=== PATIENT | male | born 1965 | race Two or more races ===

== ENCOUNTER 2023-08-19 10:44 | Inpatient (IN) | payer MEDICAID, OTHER ==
[~2023-08-19] VITALS: Ht 182.9 cm; Wt 93.0 kg
[2023-08-19] MEDS ORDERED: ASPirin 325 MG TAB PO ONE (11:00)
[2023-08-19 11:15] LABS: Basophils # (auto) 0 10 ^3/uL (0-0.2); Basophils % (auto) 0.6 % (0.0-2.0); Eosinophils # (auto) 0.1 10 ^3/uL (0-0.8); Hematocrit 44.5 % (41.0-53.0); Hemoglobin 15.1 g/dL (13.5-17.5); Lymphocytes # (auto) 2.3 10 ^3/uL (0.4-5.4); Lymphocytes % (auto) 35.4 % (10.0-50.0); Mean Corpuscular Hemoglobin 30.3 pg (28.0-32.0); Mean Corpuscular Volume 89.1 fL (80.0-100.0); Monocytes # (auto) 0.6 10 ^3/uL (0-1.3); Monocytes % (auto) 9.6 % (0.0-12.0); Neutrophils # (auto) 3.4 10 ^3/uL (1.6-8.6); Neutrophils % (auto) 52.4 % (37.0-80.0); Nucleated Red Blood Cells % 0.1 %; Red Blood Cells 4.99 10^6/uL (4.5-5.90); Red Cell Distribution Width 13.3 % (11.8-14.3); White Blood Cell 6.4 10^3/uL (4.4-10.8)
[2023-08-19 11:30] LABS: Alanine Aminotransferase 24 U/L (7-40); Albumin 4.5 g/dL (3.2-4.8); Alkaline Phosphatase 69 U/L (46-116); Anion Gap 4 (5-15); Aspartate Aminotransferase 13 U/L (13-40); BUN/Creatinine Ratio 8.2 (10.0-20.0); Bilirubin, Total 0.7 mg/dL (0.2-1.0); Blood Urea Nitrogen 8 mg/dL (9-23); Calcium 9.5 mg/dL (8.5-10.1); Carbon Dioxide 29 mmol/L (20-30); Chloride 104 mmol/L (98-107); Glucose 114 mg/dL (74-106); Potassium 4.6 mmol/L (3.5-5.1); Sodium 137 mmol/L (136-145); Total Protein 7.6 g/dL (5.7-8.2)
[2023-08-19 11:35] LABS: INR 1.09 (0.9-1.15); Partial Thromboplastin Time 28.6 SEC (24.5-34.5); Prothrombin Time 11.4 sec (9.3-11.8)
[2023-08-19 11:40] LABS: Urine Bacteria NONE SEEN /hpf (None Seen); Urine Blood Negative /uL (Negative); Urine Clarity Clear (Clear); Urine Color Colorless (Yellow); Urine Protein, UAD Negative (Negative); Urine Specific Gravity 1.006 (1.001-1.035); Urine Urobilinogen Normal (Negative); Urine WBC <1 /hpf (0 - 3)
[2023-08-19] MEDS ORDERED: DOCUSATE SOD 100 MG CAP PO PRN (14:15)
[2023-08-19] MEDS ORDERED: NITROGLYCERIN 0.4 MG SL TAB SL PRN (14:15)
[2023-08-19] MEDS ORDERED: ONDANSETRON HCL 4 MG/2 ML VIAL IV PRN ×2 (14:15)
[2023-08-19] MEDS ORDERED: ACETAMINOPHEN 325 MG TAB PO PRN (14:15)
[2023-08-19] MEDS ORDERED: MORPHINE SULFATE 4 MG/ML SYR/VIAL IV PRN (14:15)
[2023-08-19] MEDS ORDERED: MORPHINE SULFATE INJ 2 MG/ml SYRG IV PRN (14:15)
[2023-08-19] MEDS ORDERED: MECLIZINE HCL 25 MG TAB PO ONE (14:45)
[2023-08-19] MEDS ORDERED: MECLIZINE HCL 25 MG TAB PO PRN (14:45)
[2023-08-19 15:00] LABS: Triglycerides 97 mg/dL (< 150)
[2023-08-19 15:01] LABS: LDL Cholesterol 95 mg/dL (< 100)
[2023-08-19 15:02] LABS: Cholesterol 170 mg/dL (< 200); HDL Cholesterol 55 mg/dL (40-59)
[2023-08-19 15:26] VITALS: O2SAT 98
[2023-08-19 19:30] VITALS: PULSE 52; RESP 18; TEMP 98.1; O2SAT 96
[2023-08-19 22:00] VITALS: BP 127/83; PULSE 48; RESP 20; O2SAT 98
[2023-08-19] MEDS ORDERED: HEPARIN SODIUM (PORCINE) 5000 UNITS/ML 1ML VIAL SC SCH (22:00)
[2023-08-19] MEDS ORDERED: ATORVASTATIN 20 MG TAB PO SCH (22:00)
[2023-08-20] MEDS ORDERED: DOCUSATE SOD 100 MG CAP PO SCH (10:00)
[2023-08-20] MEDS ORDERED: LISINOPRIL 5 MG TAB PO SCH (10:00)
[2023-08-20] MEDS ORDERED: ASPirin 81 mg TAB PO SCH (10:00)
[2023-08-20] MEDS ORDERED: MIDAZOLAM HCL 2MG/2ML 2ml VIAL (1mg/ml) ONE (10:05)
[2023-08-20] MEDS ORDERED: fentaNYL CITRATE 100 MCG/2 ML VL ONE (10:05)
[2023-08-20] MEDS ORDERED: ANGIOMAX 250 MG VIAL IV ONE (10:05)
[2023-08-20] MEDS ORDERED: SODIUM CHL 0.9% 0 ML ONE (10:05)
[2023-08-20] MEDS ORDERED: IOHEXOL 350 MG/ML 100ML IJ ONE (10:06)
[2023-08-20] MEDS ORDERED: LIDOCAINE 2%HCL (LOCAL ANESTH.) INJ 20ML MDV ONE (10:06)
[2023-08-20 11:05] LABS: Basophils # (auto) 0 10 ^3/uL (0-0.2); Basophils % (auto) 0.5 % (0.0-2.0); Eosinophils # (auto) 0.2 10 ^3/uL (0-0.8); Eosinophils % (auto) 4.1 % (0.0-7.0); Hematocrit 45.1 % (41.0-53.0); Hemoglobin 15.3 g/dL (13.5-17.5); Lymphocytes % (auto) 33.4 % (10.0-50.0); Mean Corpuscular Hemoglobin 30.4 pg (28.0-32.0); Mean Corpuscular Hgb Conc. 33.8 g/dL (32.0-36.0); Mean Corpuscular Volume 89.8 fL (80.0-100.0); Monocytes # (auto) 0.6 10 ^3/uL (0-1.3); Monocytes % (auto) 10.2 % (0.0-12.0); Neutrophils % (auto) 51.8 % (37.0-80.0); Nucleated Red Blood Cells % 0.1 %; Red Blood Cells 5.02 10^6/uL (4.5-5.90); Red Cell Distribution Width 13.3 % (11.8-14.3); White Blood Cell 5.9 10^3/uL (4.4-10.8)
[2023-08-20 11:20] LABS: Alanine Aminotransferase 20 U/L (7-40); Albumin 4.3 g/dL (3.2-4.8); Alkaline Phosphatase 66 U/L (46-116); Anion Gap 4 (5-15); Aspartate Aminotransferase 11 U/L (13-40); BUN/Creatinine Ratio 5.5 (10.0-20.0); Bilirubin, Total 0.9 mg/dL (0.2-1.0); Blood Urea Nitrogen 6 mg/dL (9-23); Calcium 9.4 mg/dL (8.5-10.1); Carbon Dioxide 28 mmol/L (20-30); Chloride 105 mmol/L (98-107); Glucose 99 mg/dL (74-106); Potassium 4.6 mmol/L (3.5-5.1); Sodium 137 mmol/L (136-145); Total Protein 7.2 g/dL (5.7-8.2)
== END 2023-08-20 16:30 | disposition home or self-care (01) | DRG 192 ==
LOC: ER 10:44 → TELE 14:24
PROVIDERS: ADMIT Nurse Practitioner Family; ATTEND Nurse Practitioner Family
PROC: 4A023N7 Measurement of Cardiac Sampling and Pressure, Left Heart, Percutaneous Approach (ICD-10-PCS; principal; 2023-08-20)
PROC: B2111ZZ Fluoroscopy of Multiple Coronary Arteries using Low Osmolar Contrast (ICD-10-PCS; 2023-08-20)
PROC: B2151ZZ Fluoroscopy of Left Heart using Low Osmolar Contrast (ICD-10-PCS; 2023-08-20)
DX: R00.1 Bradycardia, unspecified (principal); H93.19 Tinnitus, unspecified ear; R00.2 Palpitations; I10 Essential (primary) hypertension
CPT/HCPCS: 36415; 70450; 71045; 80053; 80061; 81001; 83690; 83735; 84484; 85025; 85379; 85610; 85730; 86850; 86900; 86901; 93005; 93458; 99152; 99291; G0378; J2250

== ENCOUNTER → 2023-10-07 | Outpatient (CLI) | payer MEDICAID | END | disposition home or self-care (01) | LOC: Rad HDHVI 07:59 | PROVIDERS: ATTEND Internal Medicine Cardiovascular Disease | DX: I11.9 Hypertensive heart disease without heart failure (principal) | CPT/HCPCS: 93306 ==

== ENCOUNTER → 2023-10-09 | Outpatient (CLI) | payer MEDICAID ==
[~2023-10-09] VITALS: Ht 180.3 cm; Wt 93.0 kg
== END | disposition home or self-care (01) ==
LOC: Rad HDHVI 08:04
PROVIDERS: ATTEND Internal Medicine Cardiovascular Disease
DX: R00.2 Palpitations (principal); E78.00 Pure hypercholesterolemia, unspecified; F17.210 Nicotine dependence, cigarettes, uncomplicated; Z82.49 Family history of ischemic heart disease and other diseases of the circulatory system
CPT/HCPCS: 78452; 93017; 96374; A9500

== ENCOUNTER → 2023-12-14 | Outpatient (CLI) | payer MEDICAID ==
[~2023-12-14] MED LIST: APIX5TAB PO; ASPI-543 PO; ATOR10TA PO; DIPH25CA66 PO; METO25TA93 PO; MULT-1018 PO; ZOLP10TA6 PO
[2023-12-14 14:00] VITALS: BP 120/63; PULSE 58; RESP 18; O2SAT 96
[2023-12-14 14:20] VITALS: BP 113/60; PULSE 52; RESP 18; O2SAT 96
== END | disposition home or self-care (01) ==
LOC: CHF HDHVI 13:59
PROVIDERS: ATTEND Internal Medicine Cardiovascular Disease
DX: Z01.810 Encounter for preprocedural cardiovascular examination (principal); R94.31 Abnormal electrocardiogram [ECG] [EKG]; I10 Essential (primary) hypertension; R00.2 Palpitations; R06.02 Shortness of breath; R07.9 Chest pain, unspecified
CPT/HCPCS: 93005; G0463

== ENCOUNTER 2023-12-17 10:00 | Day surgery (SDC) | payer MEDICAID ==
[2023-12-14 15:12] LABS: Hemoglobin 14.5 g/dL (13.5-17.5); Mean Corpuscular Hemoglobin 29.5 pg (28.0-32.0); Mean Corpuscular Hgb Conc. 32.9 g/dL (32.0-36.0); Mean Corpuscular Volume 89.6 fL (80.0-100.0); Red Blood Cells 4.91 10^6/uL (4.5-5.90); Red Cell Distribution Width 13.4 % (11.8-14.3); White Blood Cell 5.9 10^3/uL (4.4-10.8)
[2023-12-14 15:19] LABS: INR 1.05 (0.9-1.15); Partial Thromboplastin Time 27.3 SEC (24.5-34.5)
[2023-12-14 15:23] LABS: Chloride 104 mmol/L (98-107); Sodium 139 mmol/L (136-145)
[2023-12-14 15:24] LABS: Anion Gap 4 (5-15); Carbon Dioxide 31 mmol/L (20-30)
[2023-12-14 15:29] LABS: BUN/Creatinine Ratio 17.5 (10.0-20.0); Blood Urea Nitrogen 17 mg/dL (9-23); Glucose 98 mg/dL (74-106)
[2023-12-14 15:32] LABS: Basophils % (manual) 0 (0.0-2.0); Blast Cells 0; Metamyelocytes % 0; Promyelocytes % 0; Reactive Lymphocytes 0
[2023-12-14 16:31] LABS: Band Neutrophils % (manual) 8; Eosinophils % (manual) 7 (0-7); Lymphocytes % (manual) 14 (10.0-50.0); Monocytes % (manual) 10 (0-12); Myelocytes % 7; Platelet Estimate Adequate
[~2023-12-17] VITALS: Ht 180.3 cm; Wt 91.6 kg
[~2023-12-17 10:00] MED LIST changes: -ASPI-543 PO; -DIPH25CA66 PO; -METO25TA93 PO; -ZOLP10TA6 PO
[2023-12-17] MEDS ORDERED: VANCOMYCIN 1GM/200ML 200 ML IV ONE ×2 (11:00→13:34)
[2023-12-17] MEDS ORDERED: VANCOMYCIN HCL 1000 MG VL ONE (13:33)
[2023-12-17] MEDS ORDERED: fentaNYL CITRATE 100 MCG/2 ML VL ONE (13:34)
[2023-12-17] MEDS ORDERED: MIDAZOLAM HCL 2MG/2ML 2ml VIAL (1mg/ml) ONE (13:34)
[2023-12-17] MEDS ORDERED: LIDOCAINE 2%HCL (LOCAL ANESTH.) INJ 20ML MDV ONE (13:51)
== END 2023-12-17 17:20 | disposition home or self-care (01) ==
LOC: CATH 10:00
PROVIDERS: ATTEND Internal Medicine Cardiovascular Disease
DX: I49.5 Sick sinus syndrome (principal); R00.1 Bradycardia, unspecified; I44.30 Unspecified atrioventricular block; I48.0 Paroxysmal atrial fibrillation; I11.0 Hypertensive heart disease with heart failure; I50.30 Unspecified diastolic (congestive) heart failure; Z79.01 Long term (current) use of anticoagulants; Z79.899 Other long term (current) drug therapy
CPT/HCPCS: 33208; 36415; 71045; 80048; 85007; 85027; 85610; 85730; 93005; C1785; C1898; J2250; J3010; J3370; J7030; 99152

== ENCOUNTER 2023-12-19 13:34 | Inpatient (IN) | payer MEDICAID ==
[~2023-12-19] VITALS: Ht 180.3 cm; Wt 97.6 kg
[2023-12-19 14:13] LABS: Basophils # (auto) 0 10 ^3/uL (0-0.2); Basophils % (auto) 0.5 % (0.0-2.0); Eosinophils # (auto) 0.2 10 ^3/uL (0-0.8); Eosinophils % (auto) 2.7 % (0.0-7.0); Hematocrit 44.8 % (41.0-53.0); Hemoglobin 14.9 g/dL (13.5-17.5); Lymphocytes # (auto) 2.2 10 ^3/uL (0.4-5.4); Lymphocytes % (auto) 30.6 % (10.0-50.0); Mean Corpuscular Hemoglobin 29.9 pg (28.0-32.0); Mean Corpuscular Hgb Conc. 33.3 g/dL (32.0-36.0); Mean Corpuscular Volume 89.6 fL (80.0-100.0); Monocytes # (auto) 0.7 10 ^3/uL (0-1.3); Monocytes % (auto) 10.3 % (0.0-12.0); Neutrophils % (auto) 55.9 % (37.0-80.0); Nucleated Red Blood Cells % 0.1 %; Red Cell Distribution Width 13.2 % (11.8-14.3); White Blood Cell 7.1 10^3/uL (4.4-10.8)
[2023-12-19 14:25] LABS: INR 1.04 (0.9-1.15); Partial Thromboplastin Time 27.2 SEC (24.5-34.5); Prothrombin Time 10.9 sec (9.3-11.8)
[2023-12-19 14:31] LABS: Alanine Aminotransferase 24 U/L (7-40); Albumin 4.3 g/dL (3.2-4.8); Alkaline Phosphatase 68 U/L (46-116); Anion Gap 6 (5-15); Aspartate Aminotransferase 19 U/L (13-40); BUN/Creatinine Ratio 19.6 (10.0-20.0); Bilirubin, Total 0.5 mg/dL (0.2-1.0); Blood Urea Nitrogen 20 mg/dL (9-23); Calcium 9.3 mg/dL (8.7-10.4); Carbon Dioxide 29 mmol/L (20-30); Chloride 105 mmol/L (98-107); Glucose 99 mg/dL (74-106); Magnesium 1.8 mg/dL (1.6-2.6); Potassium 4.7 mmol/L (3.5-5.1); Sodium 140 mmol/L (136-145); Total Protein 6.9 g/dL (5.7-8.2)
[2023-12-19] MEDS ORDERED: DIPH25CA66 PO (14:51)
[2023-12-19] MEDS: ENOXAPARIN SOD 100 MG/1 ML SYRINGE SC ONE (20:00)
[2023-12-19] MEDS ORDERED: ONDANSETRON HCL 4 MG/2 ML VIAL IV PRN (21:00)
[2023-12-19] MEDS ORDERED: HYDROcodone-ACET 5/325MG TAB PO PRN (21:00)
[2023-12-19] MEDS ORDERED: NITROGLYCERIN 0.4 MG SL TAB SL PRN (21:15)
[2023-12-19] MEDS ORDERED: MORPHINE SULFATE INJ 2 MG/ml SYRG IV PRN (21:15)
[2023-12-19 21:54] VITALS: PULSE 63; RESP 20; O2SAT 96
[2023-12-19] MEDS: ATORVASTATIN 20 MG TAB PO SCH (22:09)
[2023-12-19] MEDS: SODIUM CHLOR 0.9% PF (SALINE LOCK) 10ML VIAL/SYR IV SCH (22:10)
[2023-12-20] VITALS (8 sets, daily range): BP systolic 121–127; BP diastolic 68–83; PULSE 60–70; RESP 12–18; TEMP 97.6–98.2; O2SAT 95–98
[2023-12-20] MEDS: ZOLPIDEM TARTRATE 5 MG TAB PO SCH (00:05)
[2023-12-20 06:49] LABS: Basophils # (auto) 0 10 ^3/uL (0-0.2); Basophils % (auto) 0.6 % (0.0-2.0); Eosinophils # (auto) 0.2 10 ^3/uL (0-0.8); Eosinophils % (auto) 2.9 % (0.0-7.0); Hematocrit 42.3 % (41.0-53.0); Hemoglobin 14.2 g/dL (13.5-17.5); Lymphocytes # (auto) 2.4 10 ^3/uL (0.4-5.4); Lymphocytes % (auto) 42.6 % (10.0-50.0); Mean Corpuscular Hemoglobin 29.6 pg (28.0-32.0); Mean Corpuscular Hgb Conc. 33.5 g/dL (32.0-36.0); Mean Corpuscular Volume 88.2 fL (80.0-100.0); Monocytes # (auto) 0.6 10 ^3/uL (0-1.3); Monocytes % (auto) 10.1 % (0.0-12.0); Neutrophils # (auto) 2.5 10 ^3/uL (1.6-8.6); Neutrophils % (auto) 43.8 % (37.0-80.0); Red Cell Distribution Width 13.4 % (11.8-14.3); White Blood Cell 5.7 10^3/uL (4.4-10.8)
[2023-12-20 07:01] LABS: Alanine Aminotransferase 20 U/L (7-40); Albumin 3.9 g/dL (3.2-4.8); Alkaline Phosphatase 59 U/L (46-116); Anion Gap 7 (5-15); Aspartate Aminotransferase 19 U/L (13-40); BUN/Creatinine Ratio 19.8 (10.0-20.0); Bilirubin, Total 0.7 mg/dL (0.2-1.0); Blood Urea Nitrogen 17 mg/dL (9-23); Calcium 8.9 mg/dL (8.7-10.4); Carbon Dioxide 25 mmol/L (20-30); Chloride 107 mmol/L (98-107); Glucose 84 mg/dL (74-106); Potassium 4.1 mmol/L (3.5-5.1); Sodium 139 mmol/L (136-145); Total Protein 6.3 g/dL (5.7-8.2)
[2023-12-20] MEDS: APIXABAN 5 MG TAB PO SCH (10:10)
[2023-12-20] MEDS: ALPRAZolam 0.25 MG TAB PO PRN (10:33)
[2023-12-20] MEDS: METOPROLOL SUCCINATE XL 50 MG TAB PO ONE (11:07)
[2023-12-20] MEDS: MAGNESIUM SULFATE 1GM/100ML 100 ML IV ONE (13:31)
[2023-12-20 15:23] LABS: Magnesium 1.8 mg/dL (1.6-2.6)
[2023-12-20 15:38] LABS: CRP High Sensitivity 0.3 mg/dL (<1.0)
[2023-12-20 15:46] LABS: Erythrocyte Sedimentation Rate 8 mm/hr (0-20)
[2023-12-20] MEDS ORDERED: LORazepam 2MG/ML-1ML VIAL IV PRN (20:00)
[2023-12-21] VITALS (7 sets, daily range): BP systolic 103–121; BP diastolic 70–78; PULSE 56–70; RESP 14–19; TEMP 97.6–98.3; O2SAT 96–100
[2023-12-21 05:56] LABS: Basophils # (auto) 0 10 ^3/uL (0-0.2); Basophils % (auto) 0.7 % (0.0-2.0); Eosinophils # (auto) 0.3 10 ^3/uL (0-0.8); Eosinophils % (auto) 4.5 % (0.0-7.0); Hematocrit 42.9 % (41.0-53.0); Hemoglobin 14.4 g/dL (13.5-17.5); Lymphocytes # (auto) 2.4 10 ^3/uL (0.4-5.4); Lymphocytes % (auto) 43.1 % (10.0-50.0); Mean Corpuscular Hemoglobin 29.6 pg (28.0-32.0); Mean Corpuscular Hgb Conc. 33.5 g/dL (32.0-36.0); Mean Corpuscular Volume 88.4 fL (80.0-100.0); Monocytes # (auto) 0.6 10 ^3/uL (0-1.3); Monocytes % (auto) 10.1 % (0.0-12.0); Neutrophils # (auto) 2.3 10 ^3/uL (1.6-8.6); Neutrophils % (auto) 41.6 % (37.0-80.0); Nucleated Red Blood Cells % 0.2 %; Red Blood Cells 4.86 10^6/uL (4.5-5.90); Red Cell Distribution Width 12.9 % (11.8-14.3); White Blood Cell 5.6 10^3/uL (4.4-10.8)
[2023-12-21 06:15] LABS: Alanine Aminotransferase 18 U/L (7-40); Alkaline Phosphatase 56 U/L (46-116); Anion Gap 7 (5-15); BUN/Creatinine Ratio 14.9 (10.0-20.0); Blood Urea Nitrogen 13 mg/dL (9-23); Calcium 9.2 mg/dL (8.7-10.4); Carbon Dioxide 27 mmol/L (20-30); Chloride 106 mmol/L (98-107); Glucose 93 mg/dL (74-106); Magnesium 1.9 mg/dL (1.6-2.6); Potassium 3.9 mmol/L (3.5-5.1); Sodium 140 mmol/L (136-145)
[2023-12-21 06:16] LABS: Aspartate Aminotransferase 15 U/L (13-40); Bilirubin, Total 0.7 mg/dL (0.2-1.0)
[2023-12-21 06:17] LABS: Total Protein 6.7 g/dL (5.7-8.2)
[2023-12-21] MEDS: DOCUSATE SOD 100 MG CAP PO PRN (08:51)
[2023-12-21] MEDS: METOPROLOL SUCCINATE XL 50 MG TAB PO SCH (08:51)
[2023-12-21] MEDS: MAGNESIUM OXIDE 400 MG TAB PO SCH (08:51)
[2023-12-21] MEDS ORDERED: ZOLP10TA6 PO (14:20)
[2023-12-21] MEDS ORDERED: METO25TA93 PO (14:20)
[2023-12-21] MEDS ORDERED: ASPI-543 PO (14:20)
[2023-12-21] MEDS: ceFAZolin 1GM/50ML 50 ML IV SCH (16:00)
[2023-12-22] VITALS (12 sets, daily range): BP systolic 114–120; BP diastolic 70–78; PULSE 50–61; RESP 10–18; TEMP 97–98.3; O2SAT 95–97
[2023-12-22 06:24] LABS: Basophils # (auto) 0 10 ^3/uL (0-0.2); Basophils % (auto) 0.5 % (0.0-2.0); Eosinophils # (auto) 0.3 10 ^3/uL (0-0.8); Eosinophils % (auto) 4.8 % (0.0-7.0); Hematocrit 41.7 % (41.0-53.0); Hemoglobin 14.1 g/dL (13.5-17.5); Lymphocytes # (auto) 1.9 10 ^3/uL (0.4-5.4); Lymphocytes % (auto) 31.3 % (10.0-50.0); Mean Corpuscular Hgb Conc. 33.9 g/dL (32.0-36.0); Mean Corpuscular Volume 88.4 fL (80.0-100.0); Monocytes # (auto) 0.6 10 ^3/uL (0-1.3); Monocytes % (auto) 10.4 % (0.0-12.0); Neutrophils # (auto) 3.3 10 ^3/uL (1.6-8.6); Red Blood Cells 4.72 10^6/uL (4.5-5.90); Red Cell Distribution Width 13.2 % (11.8-14.3); White Blood Cell 6.1 10^3/uL (4.4-10.8)
[2023-12-22 06:26] LABS: Chloride 105 mmol/L (98-107); Sodium 138 mmol/L (136-145)
[2023-12-22 06:27] LABS: Anion Gap 6 (5-15); Calcium 9.1 mg/dL (8.7-10.4); Carbon Dioxide 27 mmol/L (20-30)
[2023-12-22 06:32] LABS: BUN/Creatinine Ratio 17.2 (10.0-20.0); Blood Urea Nitrogen 15 mg/dL (9-23); Glucose 101 mg/dL (74-106)
[2023-12-22 06:33] LABS: Magnesium 1.8 mg/dL (1.6-2.6)
[2023-12-22] MEDS ORDERED: ceFAZolin 1GM/50ML 50 ML IV SCH (14:30)
[2023-12-22] MEDS ORDERED: HYDROcodone-ACET 5/325MG TAB PO PRN (14:30)
[2023-12-22] MEDS: fentaNYL CITRATE 100 MCG/2 ML VL ONE (16:40)
[2023-12-22] MEDS: VANCOMYCIN 1GM/200ML 200 ML IV ONE (16:41)
[2023-12-22] MEDS: MIDAZOLAM HCL 2MG/2ML 2ml VIAL (1mg/ml) ONE (16:41)
[2023-12-22] MEDS: LIDOCAINE 2%HCL (LOCAL ANESTH.) INJ 20ML MDV ONE (16:41)
[2023-12-22] MEDS: VANCOMYCIN HCL 1000 MG VL ONE (16:41)
[2023-12-22] MEDS: HYDROmorphone HCL 2 MG/ML VL/or syr ONE (16:41)
[2023-12-22] MEDS: ACETAMINOPHEN 325 MG TAB PO PRN (21:00)
[2023-12-22] MEDS: ceFAZolin 1GM/50ML 50 ML IV SCH (22:00)
[2023-12-23] VITALS (7 sets, daily range): BP systolic 106–118; BP diastolic 64–76; PULSE 51–63; RESP 16–21; TEMP 97.5–98.3; O2SAT 97
[2023-12-23 06:20] LABS: Basophils # (auto) 0 10 ^3/uL (0-0.2); Basophils % (auto) 0.5 % (0.0-2.0); Eosinophils # (auto) 0.3 10 ^3/uL (0-0.8); Hematocrit 42.5 % (41.0-53.0); Lymphocytes # (auto) 2.4 10 ^3/uL (0.4-5.4); Lymphocytes % (auto) 34.2 % (10.0-50.0); Mean Corpuscular Hemoglobin 29.6 pg (28.0-32.0); Mean Corpuscular Volume 89.5 fL (80.0-100.0); Monocytes # (auto) 0.8 10 ^3/uL (0-1.3); Monocytes % (auto) 10.6 % (0.0-12.0); Neutrophils # (auto) 3.6 10 ^3/uL (1.6-8.6); Neutrophils % (auto) 50.7 % (37.0-80.0); Red Blood Cells 4.75 10^6/uL (4.5-5.90); Red Cell Distribution Width 13.3 % (11.8-14.3); White Blood Cell 7.1 10^3/uL (4.4-10.8)
[2023-12-23 06:33] LABS: Chloride 106 mmol/L (98-107); Sodium 137 mmol/L (136-145)
[2023-12-23 06:34] LABS: Anion Gap 5 (5-15); Calcium 8.9 mg/dL (8.7-10.4); Carbon Dioxide 26 mmol/L (20-30)
[2023-12-23 06:39] LABS: Glucose 89 mg/dL (74-106)
[2023-12-23 06:40] LABS: BUN/Creatinine Ratio 13.6 (10.0-20.0); Blood Urea Nitrogen 11 mg/dL (9-23)
[2023-12-24 05:00] VITALS: BP 104/64; PULSE 54; RESP 18; TEMP 97.5; O2SAT 96
[2023-12-24 06:35] LABS: Basophils # (auto) 0 10 ^3/uL (0-0.2); Basophils % (auto) 0.6 % (0.0-2.0); Eosinophils # (auto) 0.2 10 ^3/uL (0-0.8); Eosinophils % (auto) 3.8 % (0.0-7.0); Hematocrit 42.4 % (41.0-53.0); Hemoglobin 14.2 g/dL (13.5-17.5); Lymphocytes # (auto) 1.8 10 ^3/uL (0.4-5.4); Lymphocytes % (auto) 30.9 % (10.0-50.0); Mean Corpuscular Hemoglobin 29.8 pg (28.0-32.0); Mean Corpuscular Hgb Conc. 33.6 g/dL (32.0-36.0); Mean Corpuscular Volume 88.8 fL (80.0-100.0); Monocytes # (auto) 0.7 10 ^3/uL (0-1.3); Monocytes % (auto) 11.6 % (0.0-12.0); Neutrophils # (auto) 3.1 10 ^3/uL (1.6-8.6); Neutrophils % (auto) 53.1 % (37.0-80.0); Nucleated Red Blood Cells % 0.2 %; Red Blood Cells 4.77 10^6/uL (4.5-5.90); Red Cell Distribution Width 12.9 % (11.8-14.3); White Blood Cell 5.9 10^3/uL (4.4-10.8)
[2023-12-24 06:45] LABS: Chloride 105 mmol/L (98-107); Potassium 4.1 mmol/L (3.5-5.1); Sodium 139 mmol/L (136-145)
[2023-12-24 06:46] LABS: Anion Gap 6 (5-15); Carbon Dioxide 28 mmol/L (20-30)
[2023-12-24 06:51] LABS: BUN/Creatinine Ratio 19.5 (10.0-20.0); Blood Urea Nitrogen 16 mg/dL (9-23); Glucose 101 mg/dL (74-106); Magnesium 1.9 mg/dL (1.6-2.6)
[2023-12-24 08:00] VITALS: PULSE 52; PULSE 78; RESP 20; O2SAT 97
[2023-12-24 09:00] VITALS: BP 109/70; PULSE 78; RESP 20; TEMP 98.2; O2SAT 97
[2023-12-24 13:00] VITALS: BP 125/87; PULSE 61; RESP 20; TEMP 98.1; O2SAT 97
[2023-12-24 14:49] VITALS: BP 125/87; PULSE 61; RESP 20; TEMP 98.1; O2SAT 97
[2023-12-24 16:31] VITALS: BP 122/74; PULSE 66; RESP 20; TEMP 98; O2SAT 96
[2023-12-24] MEDS ORDERED: APIXABAN 5 MG TAB PO SCH (22:00)
== END 2023-12-24 15:40 | disposition home or self-care (01) | DRG 177 ==
LOC: ER 13:34 → TELE 21:12 → TELE-WESTW 22:24
PROVIDERS: ADMIT Internal Medicine Geriatric Medicine; ATTEND Internal Medicine Geriatric Medicine
PROC: 02WA3MZ Revision of Cardiac Lead in Heart, Percutaneous Approach (ICD-10-PCS; principal; 2023-12-22)
PROC: 02WA3MZ Revision of Cardiac Lead in Heart, Percutaneous Approach (ICD-10-PCS; 2023-12-22)
DX: T82.128A Displacement of other cardiac electronic device, initial encounter (principal); I21.A1 Myocardial infarction type 2; I47.20 Ventricular tachycardia, unspecified; I49.5 Sick sinus syndrome; I48.0 Paroxysmal atrial fibrillation; R55 Syncope and collapse; E78.5 Hyperlipidemia, unspecified; I49.3 Ventricular premature depolarization; G47.00 Insomnia, unspecified; F41.9 Anxiety disorder, unspecified; R00.2 Palpitations; Z95.0 Presence of cardiac pacemaker
CPT/HCPCS: 36415; 71045; 71046; 74176; 80048; 80053; 83735; 83880; 84484; 85025; 85610; 85652; 85730; 86141; 93005; 99152; G0378; J2250

== ENCOUNTER 2024-02-15 15:20 | Inpatient (IN) | payer MEDICAID ==
[~2024-02-15] VITALS: Ht 180.3 cm; Wt 92.1 kg
[~2024-02-15 15:20] MED LIST changes: +ASPI-543 PO; +METO25TA93 PO; +ZOLP10TA6 PO
[2024-02-15 15:45] LABS: Basophils # (auto) 0 10 ^3/uL (0-0.2); Basophils % (auto) 0.7 % (0.0-2.0); Eosinophils # (auto) 0.2 10 ^3/uL (0-0.8); Hematocrit 41.9 % (41.0-53.0); Hemoglobin 13.9 g/dL (13.5-17.5); Lymphocytes # (auto) 1.7 10 ^3/uL (0.4-5.4); Lymphocytes % (auto) 30.2 % (10.0-50.0); Mean Corpuscular Hemoglobin 29.4 pg (28.0-32.0); Mean Corpuscular Hgb Conc. 33.1 g/dL (32.0-36.0); Mean Corpuscular Volume 88.7 fL (80.0-100.0); Monocytes # (auto) 0.7 10 ^3/uL (0-1.3); Monocytes % (auto) 11.7 % (0.0-12.0); Neutrophils # (auto) 3.1 10 ^3/uL (1.6-8.6); Neutrophils % (auto) 54.4 % (37.0-80.0); Red Blood Cells 4.73 10^6/uL (4.5-5.90); Red Cell Distribution Width 13.4 % (11.8-14.3); White Blood Cell 5.7 10^3/uL (4.4-10.8)
[2024-02-15 15:55] LABS: Alanine Aminotransferase 26 U/L (7-40); Alkaline Phosphatase 64 U/L (46-116); Anion Gap 4 (5-15); Aspartate Aminotransferase 18 U/L (13-40); BUN/Creatinine Ratio 16.3 (10.0-20.0); Blood Urea Nitrogen 16 mg/dL (9-23); Calcium 9.2 mg/dL (8.5-10.1); Carbon Dioxide 32 mmol/L (20-30); Chloride 106 mmol/L (98-107); Glucose 79 mg/dL (74-106); Potassium 4.1 mmol/L (3.5-5.1); Sodium 142 mmol/L (136-145)
[2024-02-15 15:56] LABS: Albumin 4.2 g/dL (3.2-4.8); Bilirubin, Total 0.4 mg/dL (0.2-1.0); Total Protein 6.4 g/dL (5.7-8.2)
[2024-02-15] MEDS ORDERED: ACETAMINOPHEN 325 MG TAB PO PRN (21:00)
[2024-02-15] MEDS ORDERED: MORPHINE SULFATE INJ 2 MG/ml SYRG IV PRN ×2 (21:00)
[2024-02-15] MEDS ORDERED: NITROGLYCERIN 0.4 MG SL TAB SL PRN (21:00)
[2024-02-15] MEDS ORDERED: DOCUSATE SOD 100 MG CAP PO PRN (21:00)
[2024-02-15] MEDS ORDERED: HYDROcodone-ACET 5/325MG TAB PO PRN (21:00)
[2024-02-15] MEDS ORDERED: ONDANSETRON HCL 4 MG/2 ML VIAL IV PRN (21:00)
[2024-02-15] MEDS ORDERED: ALPR0.5T8 PO (21:38)
[2024-02-15 22:03] VITALS: PULSE 64; RESP 16; O2SAT 100
[2024-02-15 23:15] VITALS: PULSE 51; RESP 16; O2SAT 98
[2024-02-15] MEDS: ATORVASTATIN 20 MG TAB ONE (23:48)
[2024-02-15] MEDS: ZOLPIDEM TARTRATE 5 MG TAB ONE (23:49)
[2024-02-15] MEDS: ATORVASTATIN 20 MG TAB PO SCH (23:51)
[2024-02-15] MEDS: ZOLPIDEM TARTRATE 5 MG TAB PO SCH (23:52)
[2024-02-16 03:05] VITALS: BP 110/66; PULSE 51; RESP 16; TEMP 98.1; O2SAT 98
[2024-02-16] MEDS: ALPRAZolam 0.5 MG TAB ONE (03:38)
[2024-02-16] MEDS: ALPRAZolam 0.5 MG TAB PO PRN (03:39)
[2024-02-16 05:00] VITALS: BP 110/66; PULSE 51; RESP 16; TEMP 98.1; O2SAT 94
[2024-02-16 06:32] LABS: Alanine Aminotransferase 21 U/L (7-40); Albumin 3.9 g/dL (3.2-4.8); Alkaline Phosphatase 57 U/L (46-116); Anion Gap 5 (5-15); Aspartate Aminotransferase 18 U/L (13-40); Bilirubin, Total 0.8 mg/dL (0.2-1.0); Blood Urea Nitrogen 9 mg/dL (9-23); Calcium 9.1 mg/dL (8.5-10.1); Carbon Dioxide 27 mmol/L (20-30); Chloride 107 mmol/L (98-107); Glucose 96 mg/dL (74-106); Potassium 3.8 mmol/L (3.5-5.1); Sodium 139 mmol/L (136-145); Total Protein 6.1 g/dL (5.7-8.2)
[2024-02-16 06:33] LABS: Basophils # (auto) 0 10 ^3/uL (0-0.2); Basophils % (auto) 0.6 % (0.0-2.0); Eosinophils # (auto) 0.3 10 ^3/uL (0-0.8); Eosinophils % (auto) 5.7 % (0.0-7.0); Hematocrit 39.9 % (41.0-53.0); Hemoglobin 13.4 g/dL (13.5-17.5); Lymphocytes % (auto) 37.2 % (10.0-50.0); Mean Corpuscular Hemoglobin 30.1 pg (28.0-32.0); Mean Corpuscular Hgb Conc. 33.6 g/dL (32.0-36.0); Mean Corpuscular Volume 89.4 fL (80.0-100.0); Monocytes # (auto) 0.7 10 ^3/uL (0-1.3); Monocytes % (auto) 11.9 % (0.0-12.0); Neutrophils # (auto) 2.4 10 ^3/uL (1.6-8.6); Neutrophils % (auto) 44.6 % (37.0-80.0); Nucleated Red Blood Cells % 0.1 %; Red Blood Cells 4.46 10^6/uL (4.5-5.90); Red Cell Distribution Width 13.8 % (11.8-14.3); White Blood Cell 5.5 10^3/uL (4.4-10.8)
[2024-02-16 08:00] VITALS: PULSE 60
[2024-02-16] MEDS: ENOXAPARIN SOD 40 MG/0.4 ML SYRINGE SC ONE (08:53)
[2024-02-16] MEDS: METOPROLOL SUCCINATE XL 50 MG TAB PO ONE (08:53)
[2024-02-16] MEDS: ENOXAPARIN SOD 40 MG/0.4 ML SYRINGE SC SCH (08:59)
[2024-02-16 09:00] VITALS: BP 111/67; PULSE 60; RESP 16; TEMP 97.5; O2SAT 98
[2024-02-16] MEDS: METOPROLOL SUCCINATE XL 50 MG TAB PO SCH (09:00)
[2024-02-16] MEDS ORDERED: APIXABAN 2.5 MG TAB PO SCH (12:00)
[2024-02-16] MEDS ORDERED: METOPROLOL TARTRATE 50 MG TAB PO SCH (12:00)
[2024-02-16] MEDS: APIXABAN 5 MG TAB PO SCH (12:27)
[2024-02-16 13:00] VITALS: BP 113/68; PULSE 60; RESP 16; TEMP 97.6; O2SAT 98
[2024-02-16 17:00] VITALS: BP 123/76; PULSE 52; RESP 17; TEMP 97.5; O2SAT 98
== END 2024-02-16 18:00 | disposition home or self-care (01) | DRG 206 ==
LOC: ER 15:20 → TELE-WESTW 20:55 → TELE 20:55 → TELE-WESTW 02-16 02:55
PROVIDERS: ADMIT Nurse Practitioner Family; ATTEND Internal Medicine
DX: T82.128A Displacement of other cardiac electronic device, initial encounter (principal); I49.5 Sick sinus syndrome; E78.5 Hyperlipidemia, unspecified; I10 Essential (primary) hypertension; I25.10 Atherosclerotic heart disease of native coronary artery without angina pectoris; Y83.8 Other surgical procedures as the cause of abnormal reaction of the patient, or of later complication, without mention of misadventure at the time of the procedure; G47.00 Insomnia, unspecified; F41.9 Anxiety disorder, unspecified; Z95.0 Presence of cardiac pacemaker; Z79.82 Long term (current) use of aspirin; Z79.899 Other long term (current) drug therapy; Y92.89 Other specified places as the place of occurrence of the external cause
CPT/HCPCS: 36415; 71045; 80053; 83735; 84439; 84443; 84484; 85025; 93005; G0378

== ENCOUNTER → 2024-04-22 | Outpatient (CLI) | payer MEDICAID ==
[~2024-04-22] MED LIST changes: +ALPR0.5T8 PO
[2024-04-22 08:42] LABS: Erythrocyte Sedimentation Rate 2 mm/hr (0-20)
== END | disposition home or self-care (01) ==
LOC: LAB 07:38
PROVIDERS: ATTEND Internal Medicine
DX: E78.5 Hyperlipidemia, unspecified (principal); R73.03 Prediabetes
CPT/HCPCS: 36415; 82306; 82550; 85652

== ENCOUNTER → 2024-08-15 | Outpatient (CLI) | payer MEDICAID ==
[2024-08-15 08:27] LABS: Basophils # (auto) 0 10 ^3/uL (0-0.2); Basophils % (auto) 0.4 % (0.0-2.0); Eosinophils # (auto) 0.2 10 ^3/uL (0-0.8); Eosinophils % (auto) 3.4 % (0.0-7.0); Hematocrit 44.9 % (41.0-53.0); Hemoglobin 15.2 g/dL (13.5-17.5); Lymphocytes # (auto) 1.7 10 ^3/uL (0.4-5.4); Lymphocytes % (auto) 30.3 % (10.0-50.0); Mean Corpuscular Hemoglobin 30.5 pg (28.0-32.0); Mean Corpuscular Hgb Conc. 33.9 g/dL (32.0-36.0); Monocytes # (auto) 0.7 10 ^3/uL (0-1.3); Monocytes % (auto) 11.9 % (0.0-12.0); Neutrophils # (auto) 3.1 10 ^3/uL (1.6-8.6); Platelet Count (auto) 183 10^3/uL (140-450); Red Blood Cells 4.99 10^6/uL (4.5-5.90); Red Cell Distribution Width 13.6 % (11.8-14.3); White Blood Cell 5.7 10^3/uL (4.4-10.8)
== END | disposition home or self-care (01) ==
LOC: LAB 08:05
PROVIDERS: ATTEND Internal Medicine
DX: I70.90 Unspecified atherosclerosis (principal); F41.9 Anxiety disorder, unspecified
CPT/HCPCS: 36415; 85025

== ENCOUNTER → 2024-12-14 | Outpatient (CLI) | payer MEDICAID ==
[2024-12-14 10:39] LABS: Albumin 4.3 g/dL (3.2-4.8); Bilirubin, Direct 0.1 mg/dL (<0.3); Bilirubin, Total 0.6 mg/dL (0.2-1.0); Total Protein 6.9 g/dL (5.7-8.2)
== END | disposition home or self-care (01) ==
LOC: LAB 08:35
PROVIDERS: ATTEND Internal Medicine
DX: E78.5 Hyperlipidemia, unspecified (principal)
CPT/HCPCS: 36415; 80061; 80076

== ENCOUNTER → 2025-02-16 | Outpatient (CLI) | payer MEDICAID ==
[2025-02-16 07:57] LABS: Prostate Specific Antigen 1.98 ng/mL (0.0-4.0)
== END | disposition home or self-care (01) ==
LOC: LAB 06:45
PROVIDERS: ATTEND Internal Medicine
DX: Z12.5 Encounter for screening for malignant neoplasm of prostate (principal); E78.5 Hyperlipidemia, unspecified; Z79.899 Other long term (current) drug therapy
CPT/HCPCS: 36415; 82607; 83036; 84153

== ENCOUNTER → 2025-06-09 | Outpatient (CLI) | payer MEDICAID | END | disposition home or self-care (01) | LOC: Rad HDHVI 08:05 | PROVIDERS: ATTEND Internal Medicine Cardiovascular Disease | DX: I34.81 Nonrheumatic mitral (valve) annulus calcification (principal); Z95.0 Presence of cardiac pacemaker | CPT/HCPCS: 93306 ==

== ENCOUNTER 2025-06-12 08:04 | Outpatient (CLI) | payer MEDICAID ==
[~2025-06-12] VITALS: Ht 180.3 cm; Wt 84.8 kg
--- NOTE | 2025-06-16 14:52 | DVHSR ---
APPROVED REPORT Exam: Nuclear Stress Test Indication: Dyspnea Ht: 5 ft 11 in Wt: 187 lbs BSA: 2.05 m2 HR: 44 bpm BP: 114/75 mmHg BMI: 26.07 Rhythm: Bradycardia Medical History Medical History: Pacemaker, HTN, Hypercholesterolemia, SOB, Palpitations, Atrial Fibrillation, SSS Medications: MVI, Lipitor, Eliquis, Tambocor, Magnesium Glycinate, Ambien Allergies: No known drug allergies Cardiac Risk Factors: Family Hx of CAD Stress Test Details Stress Test: Exercise stress testing was performed using a Luis protocol. HR Resting HR: 44 bpmMax Heart Rate (APMHR): 158.283973 bpm Max HR Achieved: 142 bpmTarget HR (85% APMHR): 134.663409 bpm % of APMHR: 89.87 Recovery HR: 63 bpm HR response to stress: Normal HR response to stress BP Resting BP: 114/75 mmHg Max BP: 146/74 mmHg Recovery BP: 130/83 mmHg BP response to stress: Normal blood pressure response to stress. ECG Resting ECG: Sinus Bradycardia Stress ECG: Sinus Tachycardia Arrhythmia: PACs, PVCs Recovery ECG: Sinus Rhythm Clinical Reason for Termination: Target HR achieved Stress Symptoms: None Exercise duration: 12 min 00 sec Exercise capacity: 13.4 METs Stress ECG Conclusion NON ISCHEMIC CLINICAL RESPONSE NON ISCHEMIC CLINICAL RESPONSE EF >55% NON ISCHEMIC CARDIOLITE STRESS IMAGING LESS THAN 10% LIKELIHOOD FOR STRESS INDUCED ISCHEMIC NM EXAM: Myocardial Perfusion REST/STRESS Imaging Protocol: Rest Tc-99m/Stress Tc-99m 1 day Resting Data Rest SPECT myocardial perfusion imaging was performed in supine position 30 minutes following the int ravenous injection of 10.93 mCi of Tc-99m Sestamibi. Time of rest injection: 809 Date: 06/12/2025 Time of rest imagin Date: 06/12/2025 Administration Route: IV Administration Site: Left AC Exercise Stress At peak stress, the patient was injected intravenously with 32.8 mCi of Tc-99m Sestamibi. Time of stress injection: 920 Date: 06/12/2025 Time of stress imagin Date: 06/12/2025 Administration Route: IV Administration Site: Left AC Heart Rate at time of stress injection: 136 bpm. Patient continued to exercise for 1 minute(s). Gated Stress SPECT was performed 15 minutes after stress injection. The images were gated to evaluate regional wall motion and calculate left ventricular ejection fracti on. Comments Cardiolite injection at 10 minutes, 54 seconds into test. Nuclear Conclusion NON ISCHEMIC CLINICAL RESPONSE NON ISCHEMIC CLINICAL RESPONSE EF >55% NON ISCHEMIC CARDIOLITE STRESS IMAGING LESS THAN 10% LIKELIHOOD FOR STRESS INDUCED ISCHEMIC
== END 2025-06-12 17:00 | disposition home or self-care (01) ==
LOC: Rad HDHVI 08:04
PROVIDERS: ATTEND Internal Medicine Cardiovascular Disease
DX: I49.3 Ventricular premature depolarization (principal); I49.1 Atrial premature depolarization; R06.02 Shortness of breath; R00.2 Palpitations; I49.5 Sick sinus syndrome; I48.0 Paroxysmal atrial fibrillation; I11.9 Hypertensive heart disease without heart failure; I47.20 Ventricular tachycardia, unspecified; E78.00 Pure hypercholesterolemia, unspecified; F17.210 Nicotine dependence, cigarettes, uncomplicated; Z95.0 Presence of cardiac pacemaker
CPT/HCPCS: 78452; 93017; A9500; 96374

== ENCOUNTER 2025-06-16 06:51 | Outpatient (CLI) | payer MEDICAID ==
[2025-06-16 08:19] LABS: Urine Protein, UAD Negative (Negative)
[2025-06-16 08:43] LABS: Alanine Aminotransferase 24 U/L (7-40); Albumin 4.4 g/dL (3.2-4.8); Alkaline Phosphatase 64 U/L (46-116); Anion Gap 8 (5-15); BUN/Creatinine Ratio 16.7 (10.0-20.0); Blood Urea Nitrogen 17 mg/dL (9-23); Calcium 9.4 mg/dL (8.7-10.4); Carbon Dioxide 29 mmol/L (20-31); Chloride 102 mmol/L (98-107); Glucose 85 mg/dL (74-106); Potassium 4.3 mmol/L (3.5-5.1); Sodium 139 mmol/L (136-145); Total Protein 7.0 g/dL (5.7-8.2)
[2025-06-16 08:44] LABS: Bilirubin, Total 0.8 mg/dL (0.2-1.0)
== END 2025-06-16 17:00 | disposition home or self-care (01) ==
LOC: LAB 06:51
PROVIDERS: ATTEND Internal Medicine
DX: E78.5 Hyperlipidemia, unspecified (principal)
CPT/HCPCS: 36415; 80053; 81001; 82306; 82607

== ENCOUNTER 2025-06-22 08:14 | Outpatient (CLI) | payer MEDICAID | END 2025-06-22 17:00 | disposition home or self-care (01) | LOC: LAB 08:14 | PROVIDERS: ATTEND Internal Medicine | DX: E78.5 Hyperlipidemia, unspecified (principal); K57.90 Diverticulosis of intestine, part unspecified, without perforation or abscess without bleeding; R73.03 Prediabetes | CPT/HCPCS: 82270 ==

== ENCOUNTER 2025-10-24 07:11 | Outpatient (CLI) | payer MEDICAID ==
[2025-10-24 07:48] LABS: Hematocrit 44.4 % (41.0-53.0); Hemoglobin 14.9 g/dL (13.5-17.5); Mean Corpuscular Hemoglobin 30.4 pg (28.0-32.0); Mean Corpuscular Volume 90.4 fL (80.0-100.0); Nucleated Red Blood Cells % 0.2 %
[2025-10-24 08:00] LABS: Urine Protein, UAD Negative (Negative)
[2025-10-24 08:17] LABS: Triglycerides 93 mg/dL (< 150)
[2025-10-24 08:19] LABS: Cholesterol 168 mg/dL (< 200); HDL Cholesterol 59 mg/dL (40-59)
== END 2025-10-24 17:00 | disposition home or self-care (01) ==
LOC: LAB 07:11
PROVIDERS: ATTEND Internal Medicine Cardiovascular Disease
DX: E78.5 Hyperlipidemia, unspecified (principal); C61 Malignant neoplasm of prostate; I48.0 Paroxysmal atrial fibrillation; Z12.11 Encounter for screening for malignant neoplasm of colon; Z79.899 Other long term (current) drug therapy
CPT/HCPCS: 36415; 80061; 81001; 82306; 83036; 84403; 84443; 85025